=== PATIENT | female | born 1945 | race Caucasian/White ===

== ENCOUNTER 2018-06-24 11:43 | Inpatient (IN) | payer MEDICARE, BC ==
--- NOTE | 2018-06-24 12:10 | Emergency Department Record ---
History of Present Illness - General Chief Complaint: Dizziness Stated Complaint: DIZZINESS Time Seen by Provider: 06/24/18 12:01 Source: Patient Mode of Arrival: Ambulatory Limitations: No limitations - History of Present Illness Initial Comments: 73 yo female presents with several days of weakness, lightheadedness, nausea, chronic diarrhea. No fevers. She reports she has not seen a family doctor in many years. She is a diabetic. She reports it has been 1-2 years since she had insulin. She states she controls her diabetes with her diet. She does not recall the last time she checked her blood sugar. She denies headache, vision changes, shortness of breath, cough, abdominal pain, rash, swelling, blood in stools. She notices the dizziness when she stands up suddenly. She is not dizzy laying down. She has had a lot of sinus drainage recently. Her ears feel plugged as well. No sore throat or cough. MD Complaint: Dizziness, Lightheadedness -: Days(s) Timing: Gradual onset Description: Lightheadedness, "Room spinning" History of Same: Yes History of Trauma: No Severity: Moderate Improves With: Remaining still Worsens With: Movement, Other (standing up) Associated Symptoms: Other (nasal congestion) - Syd Coma Scale Eye Response: (4) Open spontaneously Motor Response: (6) Obeys commands Verbal Response: (5) Oriented Syd Total: 15 - Related Data Home Medications Medication Instructions Recorded Confirmed Last Taken No Home Med [NO HOME MEDS] 06/24/18 06/24/18 Unknown Allergies Allergy/AdvReac Type Severity Reaction Status Date / Time No Known Drug Allergies Allergy Verified 06/24/18 12:12 Review of Systems Constitutional: Denies: Chills, Fever, Malaise, Night sweats, Weakness Eyes: Denies: Eye discharge, Eye pain, Photophobia, Vision change ENT: Reports: Congestion, Ear pain. Denies: Throat pain Respiratory: Denies: Cough, Dyspnea Cardiovascular: Denies: Chest pain, Dyspnea on exertion, Edema, Palpitations, Syncope Endocrine: Denies: Fatigue, Polydipsia, Polyuria Gastrointestinal: Reports: Nausea. Denies: Abdominal pain, Constipation, Diarrhea, Hematemesis, Hematochezia, Vomiting Genitourinary: Denies: Dysuria, Frequency, Urgency Musculoskeletal: Denies: Arthralgia, Back pain, Myalgia, Neck pain Skin: Denies: Bruising, Change in color, Rash Neurological: Reports: As per HPI, Vertigo. Denies: Abnormal gait, Confusion, Headache, Numbness, Paresthesias, Seizure, Tingling, Tremors, Weakness Psychiatric: Denies: Anxiety Hematological/Lymphatic: Denies: Blood Clots, Easy bleeding, Easy bruising, Swollen glands Physical Exam - General General Appearance: Alert, Oriented x3, Cooperative, No acute distress, Other ( Clear speech, well appearing) Limitations: No limitations - Head Head exam: Atraumatic, Normocephalic, Normal inspection - Eye Eye exam: Normal appearance, PERRL, EOMI. negative: Conjunctival injection, Periorbital swelling, Scleral icterus - ENT ENT exam: Normal exam, Mucous membranes moist, Normal orophraynx, TM's normal bilaterally Ear exam: Normal external inspection Nasal Exam: Discharge. negative: Normal inspection, Sinus tenderness Mouth exam: Normal external inspection, Tongue normal. negative: Drooling, Muffled voice, Tongue elevation Teeth exam: Other (No teeth) Throat exam: Normal inspection - Neck Neck exam: Normal inspection, Full ROM. negative: Lymphadenopathy, Meningismus , Tenderness - Respiratory Respiratory exam: Normal lung sounds bilaterally. negative: Accessory muscle use, Decreased breath sounds, Respiratory distress, Rhonchi, Stridor, Wheezes - Cardiovascular Cardiovascular Exam: Regular rate, Normal rhythm, Normal heart sounds Peripheral Pulses: 2+: Radial (R), Radial (L) - GI/Abdominal GI/Abdominal exam: Soft. negative: Tenderness - Rectal Rectal exam: Deferred - exam: Deferred - Extremities Extremities exam: Normal inspection, Full ROM, Normal capillary refill. negative: Calf tenderness, Pedal edema, Tenderness - Back Back exam: Reports: Full ROM. Denies: CVA tenderness (R), CVA tenderness (L) - Neurological Neurological exam: Alert, CN II-XII intact, Oriented X3. negative: Altered, Motor sensory deficit - Psychiatric Psychiatric exam: Normal affect, Normal mood. negative: Agitated, Anxious - Skin Skin exam: Dry, Intact, Normal color, Warm Course - Reevaluation(s) Reevaluation #1: EMR reviewed. No records on EMR. 06/24/18 12:09 06/24/18 12:49 EKG 1233 NSR Rate 84 Intervals [address] Non specific ST changes 06/24/18 13:27 CR is 1.1 Sodium is 131 06/24/18 13:53 K is 4.5 HCO3 is 20 AG is 22 Glucose is 598 LFT's normal 06/24/18 14:22 Acetone is positive 06/24/18 14:43 pH 7.30 [facility] admission for hyperglycemia/mild DKA 06/24/18 14:48 Medical Decision Making - Lab Data Result diagrams: 06/24/18 12:55 06/24/18 12:55 Disposition Disposition: Admit Clinical Impression: Hyperglycemia, Dehydration Disposition: Still a Patient at [facility] Decision to Admit: Admit from ER Decision to Admit Date: 06/24/18 Decision to Admit Time: 14:48 Condition: (2) Stable Forms: Patient Portal Access Time of Disposition: 14:48 Quality - Quality Measures Quality Measures: N/A - Blood Pressure Screening Does Patient Have Any of the Following: No Blood Pressure Classification: Pre-Hypertensive BP Reading Systolic Measurement: 176 Diastolic Measurement: 82 Screening for High Blood Pressure: < Pre-Hypertensive BP, F/U Documented > [ [id number]] Pre-Hypertensive Follow-up Interventions: Referral to alternative/primary care provider.
[2018-06-24] MEDS ORDERED: 0.9 % SODIUM CHLORIDE 1,000 ML BAG IV ONE (12:36)
[2018-06-24 13:11] LABS: HEMATOCRIT 45.1 % (35.0-47.0); HEMOGLOBIN 15.6 gm/dl (11.6-16.0); MEAN CELL VOLUME 84.6 fl (81-97); MEAN CORPUSCULAR HEMOGLOBIN 29.3 pg (27-33); MEAN CORPUSCULAR HGB CONC 34.6 g/dl (32-36); MEAN PLATELET VOLUME 10.6 fl (7.4-10.4); PLATELET COUNT 200 K/uL (130-400); RED BLOOD COUNT 5.33 M/uL (3.80-5.40); RED CELL DISTRIBUTION WIDTH 12.4 % (11.5-14.5); WHITE BLOOD COUNT W/O DIFF 7.6 K/uL (4.2-12.2)
[2018-06-24 13:20] LABS: PLATELET ESTIMATE NORMAL (NORMAL)
[2018-06-24] MEDS ORDERED: MECLIZINE 25 MG TABLET PO ONE (13:23)
[2018-06-24] MEDS ORDERED: ONDANSETRON 4 MG ODT TABLET SL ONE (13:23)
[2018-06-24 13:24] LABS: BILIRUBIN,TOTAL 0.6 mg/dL (0.2-1.0); CREATININE 1.1 mg/dL (0.5-0.9)
[2018-06-24 13:25] LABS: TOTAL PROTEIN 7.4 g/dL (6.6-8.7)
[2018-06-24 13:29] LABS: ALB/GLOB RATIO 1.1 (1.1-1.8); ALBUMIN 3.9 g/dL (4.0-5.0)
[2018-06-24 13:40] LABS: THYROID STIMULATING HORMONE 0.84 uIU/mL (0.270-4.20)
[2018-06-24] MEDS ORDERED: HUMULIN R 100 UNIT/ML VIAL SQ ONE (13:54)
[2018-06-24 13:55] LABS: URINE APPEARANCE CLEAR; URINE BILIRUBIN NEGATIVE (NEGATIVE); URINE BLOOD NEGATIVE (NEGATIVE); URINE COLOR YELLOW; URINE KETONE 40 mg/dL (NEGATIVE); URINE LEUKOCYTE ESTERASE NEGATIVE (NEGATIVE); URINE NITRITE NEGATIVE (NEGATIVE); URINE PROTEIN NEGATIVE (NEGATIVE); URINE UROBILINOGEN 0.2 E.U./dL (0.20 - 1.00)
[2018-06-24 13:58] LABS: URINE GLUCOSE (UA) >=1000 mg/dL (NEGATIVE)
[2018-06-24] MEDS ORDERED: ONDANSETRON HCL IV 4 MG/2 ML VIAL IVP PRN (14:54)
[2018-06-24] MEDS ORDERED: ACETAMINOPHEN 325 MG TAB PO PRN (16:07)
[2018-06-24] MEDS ORDERED: 0.9 % SODIUM CHLORIDE 1000ML 1,000 ML IV PRN (16:07)
[2018-06-24 18:50] LABS: BLOOD UREA NITROGEN 21 mg/dL (8-23); CREATININE 0.8 mg/dL (0.5-0.9); EST GLOMERULAR FILTRATION RATE > 60 mL/min; GLUCOSE,RANDOM 372 mg/dL (74-109)
[2018-06-24] MEDS: HUMULIN R 100 UNIT/ML VIAL SQ PRN (18:50)
[2018-06-24 22:18] LABS: BLOOD UREA NITROGEN 21 mg/dL (8-23); CREATININE 0.8 mg/dL (0.5-0.9); EST GLOMERULAR FILTRATION RATE > 60 mL/min; GLUCOSE,RANDOM 305 mg/dL (74-109)
--- NOTE | 2018-06-25 07:42 | CT SCAN REPORT ---
EXAM: CT OF THE HEAD WITHOUT CONTRAST HISTORY: DIZZINESS. HEADACHE. TECHNIQUE: Routine noncontrast CT examination of the head was performed. Comparison: None. FINDINGS: The ventricles and subarachnoid spaces are normal in size for age. No suspicious area of abnormally increased or decreased attenuation is noted throughout the brain substance. No abnormal extraaxial fluid collection is seen. There is atherosclerotic calcification of the distal vertebral arteries and distal internal carotid arteries, mild to moderate in degree. No asymmetric density of the middle cerebral arteries. The visualized paranasal sinuses and mastoid air cells are grossly clear. The orbits as visualized are unremarkable with the exception of bilateral cataract surgery changes. The patient is edentulous. IMPRESSION: 1. NO CT EVIDENCE OF AN ACUTE INTRACRANIAL ABNORMALITY. 2. MILD TO MODERATE ATHEROSCLEROTIC CALCIFICATION OF THE DISTAL VERTEBRAL ARTERIES AND DISTAL INTERNAL CAROTID ARTERIES. 3. BILATERAL CATARACT SURGERY CHANGES. JOB NUMBER: [id number] MTDD
[2018-06-25] MEDS: HUMULIN R 100 UNIT/ML VIAL SQ PRN (08:43)
[2018-06-25 08:56] LABS: BLOOD UREA NITROGEN 21 mg/dL (8-23); CREATININE 0.8 mg/dL (0.5-0.9); EST GLOMERULAR FILTRATION RATE > 60 mL/min; GLUCOSE,RANDOM 344 mg/dL (74-109)
[2018-06-25] MEDS ORDERED: FAMOTIDINE IV 20 MG/2 ML VIAL IVP ONE (09:52)
[2018-06-25] MEDS ORDERED: ONDANSETRON HCL IV 4 MG/2 ML VIAL IVP ONE (09:58)
[2018-06-25] MEDS ORDERED: ONDANSETRON 4 MG ODT TABLET SL PRN (10:00)
[2018-06-25] MEDS ORDERED: SOD CHLOR 0.9% WITH KCL 40MEQ 40 MEQ/1,000 ML IV.SOLN IV ONE (10:01)
[2018-06-25] MEDS ORDERED: HYOSCYAMINE SULFATE ODT 0.125 MG TAB.SUBL SL ONE (10:12)
[2018-06-25 10:21] LABS: BASO % 0.3 % (0-6); GRAN % 77.6 % (47-80); LYMPH % 13.4 % (16-45); MEAN CELL VOLUME 86.8 fl (81-97); MEAN CORPUSCULAR HEMOGLOBIN 28.9 pg (27-33); MEAN CORPUSCULAR HGB CONC 33.3 g/dl (32-36); MEAN PLATELET VOLUME 10.7 fl (7.4-10.4); MONO % 8.7 % (0-9); PLATELET COUNT 195 K/uL (130-400); RED BLOOD COUNT 4.84 M/uL (3.80-5.40); RED CELL DISTRIBUTION WIDTH 12.5 % (11.5-14.5); WHITE BLOOD COUNT W/O DIFF 6.8 K/uL (4.2-12.2)
[2018-06-25] MEDS: AMLODIPINE BESYLATE 5MG TAB PO SCH (10:50)
[2018-06-25] MEDS: LEVEMIR FLEXTOUCH 100 UNIT/ML INSULIN PEN SQ SCH ×2 (10:53→22:01)
--- NOTE | 2018-06-25 12:02 | History & Physical ---
History of Present Illness - Date of Service Date of Service for History & Physical: 06/25/18 - History of Present Illness Admitting Diagnosis: DKA, mild History of Present Illness: PMHx reported by pt: HTN, COPD, HLD, reflux, DM diagnosed at 18 (insulin dependent) Pt presented to the ED with dizziness. She states that for the 2 days prior to going to the ED she was experiencing N/V/D along with nasal congestion, nasal discharge, cough, ear pain. She has not had a PCP for 3 years since moving to ER from [place], [place]. She states that she couldn't get a refill of her insulin so she has been controlling it with diet. She also has been without her other chronic meds for the last 3 years. She states that she was diagnosed with DM at 18 yo and was started on insulin. Taking 24 units in the AM and novolog throughout the day based on carb counting. She complains of some nausea still and having to force herself to eat but otherwise vomiting and diarrhea have resolved. She does complain of dysuria and frequency today. Pt was diagnosed and admitted for treatment of DKA. Travel Screening - Travel/Exposure Within Last 30 Days Have you traveled within the last 30 days?: Yes Location Detail:: [facility]. - Travel/Exposure Within Last Year Have you traveled outside the [place] in the last year?: No - Additonal Travel Details Have you been exposed to anyone with a communicable illness?: No - Travel Symptoms Symptom Screening: Weakness, Fatigue, Diarrhea, Vomiting, Stomach Pain Review of Systems Constitutional: Denies: Chills, Fever, Malaise, Night sweats, Weakness Eyes: Denies: Eye discharge, Eye pain, Photophobia, Vision change ENT: Reports: Congestion, Ear pain. Denies: Throat pain Respiratory: Reports: Cough. Denies: Dyspnea Cardiovascular: Denies: Chest pain, Dyspnea on exertion, Edema, Palpitations, Syncope Endocrine: Reports: Polyuria. Denies: Fatigue Gastrointestinal: Reports: Abdominal pain, Nausea, Vomiting (without blood). Denies: Constipation, Diarrhea, Hematemesis, Hematochezia Genitourinary: Reports: Dysuria, Frequency. Denies: Urgency Musculoskeletal: Denies: Arthralgia, Back pain, Myalgia, Neck pain Skin: Denies: Bruising, Change in color, Rash Neurological: Denies: Abnormal gait, Confusion, Headache, Numbness, Paresthesias , Seizure, Tingling, Tremors, Vertigo, Weakness Psychiatric: Denies: Anxiety Hematological/Lymphatic: Denies: Blood Clots, Easy bleeding, Easy bruising, Swollen glands Past Medical History - SOCIAL HISTORY Smoking Status: Never smoker - RESPIRATORY Hx Respiratory Disorders: Yes Hx COPD: Yes ( was long time smoker and pt exposed to second hand smoke) Comment:: secondary smoke, unknown diagnosis - CARDIOVASCULAR Hx Cardio Disorders: Yes Hx Hypertension: Yes - NEURO Hx Neuro Disorders: Yes Hx Dizziness: Yes - GI Hx GI Disorders: Yes Hx Reflux: Yes Hx Nausea/Vomiting: Yes - Hx Genitourinary Disorders: Yes Hx Bladder Problem: Yes (hx of surgery) - ENDOCRINE Hx Endocrine Disorders: Yes Hx Diabetes: Yes (diet controlled, hx of insulin use) - MUSCULOSKELETAL Hx Musculoskeletal Disorders: Yes Hx Arthritis: Yes (RA) - PSYCH Hx Psych Problems: No - HEMATOLOGY/ONCOLOGY Hx Hematology/Oncology Disorders: No Family Medical History Any Significant Family History?: Yes Hx Cancer: Father, Mother Hx Diabetes: Father, Mother Hx Heart Disease: Mother, Brother/Sister Hx HTN: Mother, Brother/Sister Hx Stroke: Father H&P Meds/Allergies - Allergies Allergies: Allergies Allergy/AdvReac Type Severity Reaction Status Date / Time No Known Drug Allergies Allergy Verified 06/24/18 12:12 - Home Medications Home Medications Medication Instructions Recorded Confirmed Last Taken No Home Med [NO HOME MEDS] 06/24/18 06/24/18 Unknown - Active Medications Active Medications: Current Medications Acetaminophen (Tylenol 325mg) 650 mg PO Q6H PRN PRN Reason: PAIN - MILD(1-4)/FEVER Last Admin: 06/24/18 20:23 Dose: 650 mg Amlodipine Besylate (Norvasc) 5 mg PO DAILY [facility] Last Admin: 06/25/18 10:50 Dose: 5 mg Potassium Chloride/Sodium Chloride (Potassium Chl 40meq/) 40 meq in 1,000 mls @ 100 mls/hr IV NOW ONE Stop: 06/25/18 20:00 Last Admin: 06/25/18 10:53 Dose: 100 mls/hr Insulin Aspart (Novolog Flexpen) 1 unit SQ QIDACHS PRN PRN Reason: HYPERGLYCEMIA Insulin Detemir (Levemir Flextouch) 10 unit SQ BID [facility] Last Admin: 06/25/18 10:53 Dose: 10 unit Ondansetron HCl (Zofran Odt) 4 mg SL Q8H PRN PRN Reason: NAUSEA/VOMITING Physical Exam - Vital Signs Vital Signs: Vital Signs - Last 24 Hrs Temp Pulse Pulse Resp BP BP BP 06/25/18 08:31 16 06/25/18 08:00 98.9 F 76 18 155/50 06/25/18 00:00 98.6 F 06/24/18 21:00 100.7 F H 06/24/18 20:29 16 06/24/18 20:00 102.0 F H 90 20 131/71 06/24/18 16:09 84 16 06/24/18 15:45 99.4 F 82 18 172/68 06/24/18 15:37 98.2 F 84 18 185/67 06/24/18 14:41 80 20 177/65 06/24/18 12:00 98.1 F 90 20 176/82 Pulse Ox 06/25/18 08:31 06/25/18 08:00 95 06/25/18 00:00 06/24/18 21:00 06/24/18 20:29 06/24/18 20:00 100 06/24/18 16:09 06/24/18 15:45 99 06/24/18 15:37 96 06/24/18 14:41 95 06/24/18 12:00 98 - General General Appearance: Alert, Oriented x3, Cooperative, No acute distress, Other ( Clear speech, well appearing) Limitations: No limitations - Head Head exam: Atraumatic, Normocephalic, Normal inspection - Eye Eye exam: Normal appearance, EOMI. negative: Conjunctival injection, Periorbital swelling, Scleral icterus - ENT ENT exam: Normal exam, Mucous membranes dry, Normal orophraynx Ear exam: Normal external inspection Nasal Exam: negative: Normal inspection, Discharge, Sinus tenderness Mouth exam: Normal external inspection, Tongue normal. negative: Drooling, Muffled voice, Tongue elevation Teeth exam: Other (No teeth) Throat exam: Normal inspection - Neck Neck exam: Normal inspection, Full ROM. negative: Lymphadenopathy, Tenderness - Respiratory Respiratory exam: Normal lung sounds bilaterally. negative: Accessory muscle use, Decreased breath sounds, Respiratory distress, Rhonchi, Stridor, Wheezes - Cardiovascular Cardiovascular Exam: Regular rate, Normal rhythm, Normal heart sounds - GI/Abdominal GI/Abdominal exam: Soft, Normal bowel sounds. negative: Tenderness - Rectal Rectal exam: Deferred - exam: Deferred - Extremities Extremities exam: Normal inspection, Full ROM, Normal capillary refill. negative: Calf tenderness, Pedal edema, Tenderness - Back Back exam: Reports: Full ROM - Neurological Neurological exam: Alert, Normal gait, Oriented X3. negative: Altered, Motor sensory deficit - Psychiatric Psychiatric exam: Normal affect, Normal mood. negative: Agitated, Anxious - Skin Skin exam: Dry, Intact, Normal color, Warm Results - Labs Result Diagrams: 06/25/18 06:20 06/25/18 06:20 Labs Last 24 Hours: Laboratory Results - last 24 hr 06/24/18 06/24/18 06/24/18 12:55 12:55 12:55 WBC 7.6 RBC 5.33 Hgb 15.6 Hct 45.1 MCV 84.6 MCH 29.3 MCHC 34.6 RDW 12.4 Plt Count 200 MPV 10.6 H Gran % Neutrophils % 79.0 Lymphocytes % Monocytes % Eosinophils % Not Reportable Basophils % Not Reportable Lymphocytes 15.0 L Monocytes 6.0 Platelet Estimate Normal VBG pH Sodium 131 L Potassium 4.5 Chloride 89 L Carbon Dioxide 20.0 L Anion Gap 22.0 H BUN 27 H Creatinine 1.1 H Estimated GFR 52 POC Glucose Random Glucose 598 H* Hemoglobin A1c Calcium 9.0 Total Bilirubin 0.60 AST 12 ALT 9 Alkaline Phosphatase 89 Total Protein 7.4 Albumin 3.9 L Globulin 3.5 Albumin/Globulin Ratio 1.1 TSH 0.84 Urine Color Urine Appearance Urine pH Ur Specific [place] Urine Protein Urine Glucose (UA) Urine Ketones Urine Blood Urine Nitrite Urine Bilirubin Urine Urobilinogen Ur Leukocyte Esterase Acetone, Qual Positive 06/24/18 06/24/18 06/24/18 13:40 14:15 17:00 WBC RBC Hgb Hct MCV MCH MCHC RDW Plt Count MPV Gran % Neutrophils % Lymphocytes % Monocytes % Eosinophils % Basophils % Lymphocytes Monocytes Platelet Estimate VBG pH 7.30 L Sodium Potassium Chloride Carbon Dioxide Anion Gap BUN Creatinine Estimated GFR POC Glucose Cancelled Random Glucose Hemoglobin A1c Calcium Total Bilirubin AST ALT Alkaline Phosphatase Total Protein Albumin Globulin Albumin/Globulin Ratio TSH Urine Color Yellow Urine Appearance Clear Urine pH 5.5 Ur Specific [place] 1.010 Urine Protein Negative Urine Glucose (UA) >=1000 mg/dl H Urine Ketones 40 mg/dl H Urine Blood Negative Urine Nitrite Negative Urine Bilirubin Negative Urine Urobilinogen 0.2 Ur Leukocyte Esterase Negative Acetone, Qual Cancelled 06/24/18 06/24/18 06/24/18 17:30 17:57 21:55 WBC RBC Hgb Hct MCV MCH MCHC RDW Plt Count MPV Gran % Neutrophils % Lymphocytes % Monocytes % Eosinophils % Basophils % Lymphocytes Monocytes Platelet Estimate VBG pH Sodium 134 L 134 L Potassium 4.2 3.7 Chloride 93 L 97 L Carbon Dioxide 21.0 L 25.0 Anion Gap 20.0 H 12.0 BUN 21 21 Creatinine 0.8 0.8 Estimated GFR > 60 > 60 POC Glucose 321 H Random Glucose 372 H 305 H Hemoglobin A1c Calcium 8.7 L 8.5 L Total Bilirubin AST ALT Alkaline Phosphatase Total Protein Albumin Globulin Albumin/Globulin Ratio TSH Urine Color Urine Appearance Urine pH Ur Specific [place] Urine Protein Urine Glucose (UA) Urine Ketones Urine Blood Urine Nitrite Urine Bilirubin Urine Urobilinogen Ur Leukocyte Esterase Acetone, Qual 06/24/18 06/25/18 06/25/18 22:00 06:20 06:20 WBC RBC Hgb Hct MCV MCH MCHC RDW Plt Count MPV Gran % Neutrophils % Lymphocytes % Monocytes % Eosinophils % Basophils % Lymphocytes Monocytes Platelet Estimate VBG pH Sodium 135 L Potassium 4.1 Chloride 97 L Carbon Dioxide 22.0 Anion Gap 16.0 BUN 21 Creatinine 0.8 Estimated GFR > 60 POC Glucose Cancelled Random Glucose 344 H Hemoglobin A1c 15.20 H Calcium 8.8 Total Bilirubin AST ALT Alkaline Phosphatase Total Protein Albumin Globulin Albumin/Globulin Ratio TSH Urine Color Urine Appearance Urine pH Ur Specific [place] Urine Protein Urine Glucose (UA) Urine Ketones Urine Blood Urine Nitrite Urine Bilirubin Urine Urobilinogen Ur Leukocyte Esterase Acetone, Qual 06/25/18 06/25/18 06/25/18 06:20 08:10 10:00 WBC 6.8 RBC 4.84 Hgb 14.0 Hct 42.0 MCV 86.8 MCH 28.9 MCHC 33.3 RDW 12.5 Plt Count 195 MPV 10.7 H Gran % 77.6 Neutrophils % Not Reportable Lymphocytes % 13.4 L Monocytes % 8.7 Eosinophils % 0.0 Basophils % 0.3 Lymphocytes Not Reportable Monocytes Not Reportable Platelet Estimate VBG pH Sodium Cancelled Potassium Cancelled Chloride Cancelled Carbon Dioxide Cancelled Anion Gap Cancelled BUN Cancelled Creatinine Cancelled Estimated GFR Cancelled POC Glucose Cancelled Random Glucose Cancelled Hemoglobin A1c Calcium Cancelled Total Bilirubin AST ALT Alkaline Phosphatase Total Protein Albumin Globulin Albumin/Globulin Ratio TSH Urine Color Urine Appearance Urine pH Ur Specific [place] Urine Protein Urine Glucose (UA) Urine Ketones Urine Blood Urine Nitrite Urine Bilirubin Urine Urobilinogen Ur Leukocyte Esterase Acetone, Qual 06/25/18 16:00 WBC RBC Hgb Hct MCV MCH MCHC RDW Plt Count MPV Gran % Neutrophils % Lymphocytes % Monocytes % Eosinophils % Basophils % Lymphocytes Monocytes Platelet Estimate VBG pH Sodium Cancelled Potassium Cancelled Chloride Cancelled Carbon Dioxide Cancelled Anion Gap Cancelled BUN Cancelled Creatinine Cancelled Estimated GFR Cancelled POC Glucose Random Glucose Cancelled Hemoglobin A1c Calcium Cancelled Total Bilirubin AST ALT Alkaline Phosphatase Total Protein Albumin Globulin Albumin/Globulin Ratio TSH Urine Color Urine Appearance Urine pH Ur Specific [place] Urine Protein Urine Glucose (UA) Urine Ketones Urine Blood Urine Nitrite Urine Bilirubin Urine Urobilinogen Ur Leukocyte Esterase Acetone, Qual VTE H&P Assessment - Risk for VTE Risk for VTE: Yes Risk Level: Low Risk Assessment Date: 06/25/18 Risk Assessment Time: 12:00 VTE Orders Placed or Will Be Placed: Yes Plan - Inpatient Certification Inpatient Certification: Admit to inpatient care: Based on my medical assessment, after consideration of patient's risk factors (age, co-morbidities and patient presenting symptoms and acuity), I expect that this patient will remain in the hospital greater than or equal to two midnights and that the services needed warrant inpatient care because: Patient Risk Factors: [] Estimated length of stay: [] The patient may reasonably be expected to be discharged or transferred to a hospital within 96 hours after admission to [facility]. Services needed: [] Post hospital care (if known): [] I certify that my determination is in accordance with my understanding of Medicare requirements for reasonable and necessary inpatient services. - Detailed Diagnosis and Plan (1) DKA (diabetic ketoacidoses) Plan: - Uncontrolled diabetic 2/2 to no medication and also worsened by infection. - Pt febrile overnight. - CBC and BMP ordered. - Anion gap closed with fluids overnight. - Likely viral infection but will do CXR and urine to rule out bacterial infection. - Continue NS w/ KCL at 1.5 maintenance (100ml/hr) until pt has good oral intake. - Zofran, pepcid, and hyoscyamine now. - Zofran PRN nausea Q 8 hours afterwards. - Levemir 10units BID - Novolog per SS - ADA diet Current Visit: Yes Status: Acute Qualifiers: Diabetes mellitus type: type 1 Diabetes mellitus complication detail: without coma Qualified Code(s): E10.10 - Type 1 diabetes mellitus with ketoacidosis without coma Base Code: E13.10 - OTH DIABETES MELLITUS WITH KETOACIDOSIS WITHOUT COMA Priority: High (2) HTN (hypertension) Plan: - Start norvasc 5mg daily. Current Visit: Yes Status: Acute Base Code: I10 - ESSENTIAL (PRIMARY) HYPERTENSION (3) COPD (chronic obstructive pulmonary disease) Plan: - Breo Daily. Current Visit: Yes Status: Acute Base Code: J44.9 - CHRONIC OBSTRUCTIVE PULMONARY DISEASE, UNSPECIFIED - Disposition Home when tolerating PO intake and sugars controlled.
[2018-06-25] MEDS: NOVOLOG FLEXPEN (INSULIN ASPART) 100 UNITS/ML SQ PRN ×3 (14:10→22:02)
[2018-06-26] MEDS ORDERED: BREO (FLUTICASONE/VILANTEROL) 100MCG/25MCG INHALER INH SCH ×2 (06:00→10:00)
[2018-06-26 06:42] LABS: BLOOD UREA NITROGEN 20 mg/dL (8-23); CREATININE 0.6 mg/dL (0.5-0.9); EST GLOMERULAR FILTRATION RATE > 60 mL/min; GLUCOSE,RANDOM 218 mg/dL (74-109)
--- NOTE | 2018-06-26 09:29 | Discharge Summary ---
Providers Discharge Summary Date: 06/26/18 Date of admission: 06/24/18 15:46 Expected Date of Discharge: 06/26/18 Attending physician: MAITE MEEHAN Physical Exam - Vital Signs Vital Signs: Vital Signs - Last 24 Hrs Temp Pulse Resp BP Pulse Ox 06/26/18 08:59 99.0 F 76 16 146/65 100 06/26/18 06:42 98.4 F 65 18 149/64 92 L 06/25/18 21:00 84 18 06/25/18 20:00 97.5 F L 84 18 162/68 95 06/25/18 16:00 99.6 F 79 16 147/57 94 L 06/25/18 12:00 99.0 F 78 18 111/61 96 - General General Appearance: Alert, Oriented x3, Cooperative, No acute distress, Other ( Clear speech, well appearing) Limitations: No limitations - Head Head exam: Atraumatic, Normocephalic, Normal inspection Head exam detail: negative: Abrasion, Contusion, CSF otorrhea, CSF rhinorrhea, Laceration, [place] eyes - Eye Eye exam: Normal appearance, EOMI. negative: Conjunctival injection, Periorbital swelling, Scleral icterus - ENT ENT exam: Normal exam, Mucous membranes moist, Normal external ear exam Ear exam: Normal external inspection Nasal Exam: negative: Normal inspection, Discharge, Sinus tenderness Mouth exam: Normal external inspection, Tongue normal. negative: Drooling, Muffled voice, Tongue elevation Teeth exam: Other (No teeth) Throat exam: Normal inspection - Neck Neck exam: Normal inspection, Full ROM. negative: Lymphadenopathy, Tenderness - Respiratory Respiratory exam: Normal lung sounds bilaterally. negative: Accessory muscle use, Decreased breath sounds, Respiratory distress, Rhonchi, Stridor, Wheezes - Cardiovascular Cardiovascular Exam: Regular rate, Normal rhythm, Normal heart sounds - GI/Abdominal GI/Abdominal exam: Soft, Normal bowel sounds. negative: Tenderness - Rectal Rectal exam: Deferred - exam: Deferred - Extremities Extremities exam: Normal inspection, Full ROM. negative: Calf tenderness, Pedal edema, Tenderness - Back Back exam: Reports: Full ROM - Neurological Neurological exam: Alert, Normal gait, Oriented X3. negative: Altered, Motor sensory deficit - Psychiatric Psychiatric exam: Normal affect, Normal mood. negative: Agitated, Anxious - Skin Skin exam: Dry, Intact, Normal color, Warm Hospitalization - Hospitalization Admission Diagnosis: DKA, mild - Problem List/Discharge Diagnosis (1) DKA (diabetic ketoacidoses) Plan: - Uncontrolled diabetic 2/2 to no medication and also worsened by viral infection. - Afebrile x 2 days. - No evidence of bacterial infection on CBC/ UA/ CXR. Likely viral sinusitis. - Anion gap closed. - Abd pain resolved. Nausea resolved. Good appetite. - This AM glucose level 180. - Required 16 units of novolog overnight will increase long acting to 15 units BID. - Will give sliding scale to use at home for novolog. - ADA diet - Add lipitor upon D/C 06/26/18 09:55 06/26/18 11:57 Current Visit: Yes Status: Acute Discharge Diagnosis: Diabetes mellitus type: type 1 Diabetes mellitus complication detail: without coma Qualified Code(s): E10.10 - Type 1 diabetes mellitus with ketoacidosis without coma Base Code: E13.10 - OTH DIABETES MELLITUS WITH KETOACIDOSIS WITHOUT COMA (2) HTN (hypertension) Plan: - Continue norvasc daily. Current Visit: Yes Status: Acute Discharge Diagnosis: Hypertension type: essential hypertension Qualified Code(s): I10 - Essential (primary) hypertension Base Code: I10 - ESSENTIAL (PRIMARY) HYPERTENSION (3) COPD (chronic obstructive pulmonary disease) Plan: - Will see which inhalers are covered for pt. Will give per coverage to use at home. - Should get PFT outpt to assess for true diagnosis. - long time smoker and she was exposed to fumes for several years. 06/26/18 11:58 Current Visit: Yes Status: Chronic Discharge Diagnosis: COPD type: unspecified COPD Qualified Code(s): J44.9 - Chronic obstructive pulmonary disease, unspecified Base Code: J44.9 - CHRONIC OBSTRUCTIVE PULMONARY DISEASE, UNSPECIFIED - Disposition Home when tolerating PO intake and sugars controlled. - Hospitalization Course Disposition: Home, Self-Care Hospital Course: PMHx reported by pt: HTN, COPD, HLD, reflux, DM diagnosed at 18 (insulin dependent) ED course: Pt presented to the ED with dizziness. She states that for the 2 days prior to going to the ED she was experiencing N/V/D along with nasal congestion, nasal discharge, cough, ear pain. She has not had a PCP for 3 years since moving to ER from [place], [place]. She states that she couldn't get a refill of her insulin so she has been controlling it with diet. She also has been without her other chronic meds for the last 3 years. She states that she was diagnosed with DM at 18 yo and was started on insulin. Taking 24 units in the AM, unsure about PM, and novolog throughout the day based on carb counting. She complains of some nausea still and having to force herself to eat but otherwise vomiting and diarrhea have resolved. She does complain of dysuria and frequency today. Pt was diagnosed and admitted for treatment of DKA. 06/25: Bacterial infection ruled out as cause of DKA but pt likely has viral sinusitis and evident uncontrolled diabetes. HbA1C 15. Anion gap closed, pt starting to eat. Sugars still elevated in 300-400 range today. Still nauseated and has abdominal pain. 06/26: Anion gap remains closed. Pt feeling much better. Glucose in AM 180. Tolerating PO intake well. Ready for discharge home. Procedures: Imaging and X-Rays 06/24/18 12:28 HEAD WO CONTRAST [CT] Stat 06/25/18 10:08 CHEST 2 VIEWS [RAD] Routine Cardiology Procedures 06/24/18 12:28 EKG NOW Abnormal Labs: Abnormal Lab Results 06/24/18 06/24/18 06/24/18 Range/Units 12:55 12:55 13:40 MPV 10.6 H (7.4-10.4) fl Lymphocytes % (16-45) % Lymphocytes 15.0 L (16-45) % VBG pH (7.33-7.43) Sodium 131 L (136-145) mmol/L Chloride 89 L (98-107) mmol/L Carbon Dioxide 20.0 L (22-29) mmol/L Anion Gap 22.0 H (7-16) BUN 27 H (8-23) mg/dL Creatinine 1.1 H (0.5-0.9) mg/dL POC Glucose (70-110) mg/dL Random Glucose 598 H* (74-109) mg/dL Hemoglobin A1c (4.0-6.00) % Calcium (8.8-10.2) mg/dL Albumin 3.9 L (4.0-5.0) g/dL Urine Glucose (UA) >=1000 mg/dl H (NEGATIVE) Urine Ketones 40 mg/dl H (NEGATIVE) 06/24/18 06/24/18 06/24/18 Range/Units 14:15 17:30 17:57 MPV (7.4-10.4) fl Lymphocytes % (16-45) % Lymphocytes (16-45) % VBG pH 7.30 L (7.33-7.43) Sodium 134 L (136-145) mmol/L Chloride 93 L (98-107) mmol/L Carbon Dioxide 21.0 L (22-29) mmol/L Anion Gap 20.0 H (7-16) BUN (8-23) mg/dL Creatinine (0.5-0.9) mg/dL POC Glucose 321 H (70-110) mg/dL Random Glucose 372 H (74-109) mg/dL Hemoglobin A1c (4.0-6.00) % Calcium 8.7 L (8.8-10.2) mg/dL Albumin (4.0-5.0) g/dL Urine Glucose (UA) (NEGATIVE) Urine Ketones (NEGATIVE) 06/24/18 06/25/18 06/25/18 Range/Units 21:55 06:20 06:20 MPV (7.4-10.4) fl Lymphocytes % (16-45) % Lymphocytes (16-45) % VBG pH (7.33-7.43) Sodium 134 L 135 L (136-145) mmol/L Chloride 97 L 97 L (98-107) mmol/L Carbon Dioxide (22-29) mmol/L Anion Gap (7-16) BUN (8-23) mg/dL Creatinine (0.5-0.9) mg/dL POC Glucose (70-110) mg/dL Random Glucose 305 H 344 H (74-109) mg/dL Hemoglobin A1c 15.20 H (4.0-6.00) % Calcium 8.5 L (8.8-10.2) mg/dL Albumin (4.0-5.0) g/dL Urine Glucose (UA) (NEGATIVE) Urine Ketones (NEGATIVE) 06/25/18 06/25/18 06/25/18 Range/Units 06:20 11:50 21:25 MPV 10.7 H (7.4-10.4) fl Lymphocytes % 13.4 L (16-45) % Lymphocytes (16-45) % VBG pH (7.33-7.43) Sodium (136-145) mmol/L Chloride (98-107) mmol/L Carbon Dioxide (22-29) mmol/L Anion Gap (7-16) BUN (8-23) mg/dL Creatinine (0.5-0.9) mg/dL POC Glucose 405 H 425 H (70-110) mg/dL Random Glucose (74-109) mg/dL Hemoglobin A1c (4.0-6.00) % Calcium (8.8-10.2) mg/dL Albumin (4.0-5.0) g/dL Urine Glucose (UA) (NEGATIVE) Urine Ketones (NEGATIVE) 06/26/18 Range/Units 06:13 MPV (7.4-10.4) fl Lymphocytes % (16-45) % Lymphocytes (16-45) % VBG pH (7.33-7.43) Sodium (136-145) mmol/L Chloride (98-107) mmol/L Carbon Dioxide (22-29) mmol/L Anion Gap (7-16) BUN (8-23) mg/dL Creatinine (0.5-0.9) mg/dL POC Glucose (70-110) mg/dL Random Glucose 218 H (74-109) mg/dL Hemoglobin A1c (4.0-6.00) % Calcium 8.5 L (8.8-10.2) mg/dL Albumin (4.0-5.0) g/dL Urine Glucose (UA) (NEGATIVE) Urine Ketones (NEGATIVE) Condition at Discharge: (1) Good VTE Discharge VTE Reason For No Overlap Therapy: Not Indicated Discharge Medications - Discharge Medications Prescriptions: Amlodipine Besylate [Norvasc] 5 mg PO DAILY #30 tab Atorvastatin Calcium [Lipitor] 40 mg PO DAILY #30 tablet Budesonide/Formoterol Fumarate [Symbicort 80-4.5 Mcg Inhaler] 2 puff IH BID #1 hfa.aer.ad Insulin Aspart [Novolog Flexpen] 1 unit SQ QIDACHS PRN #30 ml PRN Reason: Hyperglycemia Insulin Detemir [Levemir Flextouch] 15 unit SQ BID #30 mls Home Medications: Ambulatory Orders Amlodipine Besylate [Norvasc] 5 mg PO DAILY #30 tab 08/30/18 [Last Taken Unknown ] Atorvastatin Calcium [Lipitor] 40 mg PO DAILY #30 tablet 06/26/18 [Last Taken Unknown] Budesonide/Formoterol Fumarate [Symbicort 80-4.5 Mcg Inhaler] 2 puff IH BID #1 hfa.aer.ad 06/26/18 [Last Taken Unknown] Insulin Aspart [Novolog Flexpen] 1 unit SQ QIDACHS PRN #30 ml 06/26/18 [Last Taken Unknown] Insulin Detemir [Levemir Flextouch] 15 unit SQ BID #30 mls 06/26/18 [Last Taken Unknown] Discharge Plan - Discharge Instructions Activity at Discharge: Resume Usual Activities As Tolerated Diet at Discharge: Diabetic Diet Instructions: Amlodipine (By mouth), Atorvastatin (By mouth), Diabetic Ketoacidosis (DC), COPD (Chronic Obstructive Pulmonary Disease) (DC), Chronic Hypertension (DC) Additional Instructions: Novolog Sliding Scale: <150: 0 units 151-200 201-250 251-300 301-350 351-400 >400 Long acting insulin: 15 units in morning and before bed. Test glucose before each meal and at bedtime. F/u for appointment with family practice as planned. Quality Measures - Quality Measures Quality Measures: Advance Directives, Documentation of Current Medications in Medical Record, Elder Maltreatment Screen and Follow-Up Plan, Screening for High Blood Pressure and F/U Documented - Current Medications Quality Measure: Measure #130: Documentation of Current Medications Documentation of Current Medications: <Current Medications Documented/Reviewed> [G8427] - Blood Pressure Screening Quality Measure: Screening for High Blood Pressure and Follow-Up Documented Does Patient Have Any of the Following: Active Dx of HTN Blood Pressure Classification: Pre-Hypertensive BP Reading Systolic Measurement: 176 Diastolic Measurement: 82 Screening for High Blood Pressure: Patient Exclusion, Hx of HTN [G9744] - Advance Directives Quality Measure: Measure #47: Care Plan Advance Directives Established: No Advance Directives Information Provided To Patient: Yes Advance Directives on File: No Living Will: No Power of Oil Sales [employer] Service Rep: No Advance Care Planning: Not Discussed or Documented [[id number]] - Elder Abuse Suspicion Index Screening: Elder Abuse Suspicion Index Screening Rely on people for bathing, dressing, shopping, banking, etc: No Prevented from getting food, clothes, medication, etc: No Made to feel shamed or threatened by someone: No Forced to sign papers or use money against will: No Feel afraid, touched in ways not wanted or hurt physically: No Poor eye contact, withdrawn, malnourished, cuts or bruises: No Screening Result: Negative result EASI Reference Information: Anna JAIME, Venkatesh Grady, Danii Farias, Koffi Trammell.Development and validation of a tool to assist physicians identification of elder abuse: The Elder Abuse Suspicion Index (EASI ). Journal of Elder Abuse and Neglect, 2008; 20 (3): 276-300. - Elder Maltreatment Screen Quality Measures: Elder Maltreatment Screen and Follow-Up Plan Elder Maltreatment Screen: <Negative, No Follow-Up Plan Required> [G1662]
[2018-06-26] MEDS: LEVEMIR FLEXTOUCH 100 UNIT/ML INSULIN PEN SQ SCH (09:36)
[2018-06-26] MEDS: NOVOLOG FLEXPEN (INSULIN ASPART) 100 UNITS/ML SQ PRN ×2 (09:37→11:57)
[2018-06-26] MEDS: AMLODIPINE BESYLATE 5MG TAB PO SCH (09:48)
[2018-06-26] MEDS ORDERED: FAMOTIDINE 20MG TABLET PO SCH (10:00)
--- NOTE | 2018-06-28 20:03 | RADIOLOGY REPORT ---
EXAM: CHEST 2 VIEWS HISTORY: COUGH AND FEVER. TECHNIQUE: Upright PA and lateral views of the chest. COMPARISON: None. FINDINGS: The heart is not enlarged. The pulmonary vasculature is nondilated. There is elevation of the right hemidiaphragm. No confluent airspace opacity is seen, nor is there costophrenic angle blunting or pneumothorax. There are degenerative changes scattered throughout the visualized spine. IMPRESSION: NO EVIDENCE OF ACUTE CARDIOPULMONARY DISEASE. MILD ELEVATION OF THE RIGHT HEMIDIAPHRAGM. JOB NUMBER: [id number] [facility]
== END 2018-06-26 12:15 | disposition home or self-care (01) | DRG 639 ==
LOC: ER 11:43 → MEDSURG 15:46
PROVIDERS: ADMIT Internal Medicine; ATTEND Internal Medicine
DX: E10.10 Type 1 diabetes mellitus with ketoacidosis without coma (principal); E10.65 Type 1 diabetes mellitus with hyperglycemia; E86.0 Dehydration; R53.1 Weakness; R11.0 Nausea; R19.7 Diarrhea, unspecified; I10 Essential (primary) hypertension; J44.9 Chronic obstructive pulmonary disease, unspecified; M06.9 Rheumatoid arthritis, unspecified; E78.5 Hyperlipidemia, unspecified
CPT/HCPCS: 36416; 70450; 71046; 80048; 80053; 81003; 82009; 82800; 82948; 83036; 84443; 85027; 93005; 93010; 94640; 96360; 96361; 96374; 96375; 99223; 99238; 99285; J2405; J3490; J7030

== ENCOUNTER 2018-08-22 12:39 | Day surgery (SDC) | payer MEDICARE, BC ==
[2018-08-22] MEDS ORDERED: PROPOFOL 10 MG/ML VIAL IV ONE (12:40)
[2018-08-22] MEDS ORDERED: LIDOCAINE 2% MDV (20MG/ML) 20ML VIAL IV ONE (12:40)
--- NOTE | 2018-08-25 09:50 | Operative Note ---
DATE OF SURGERY: 08/22/2018 SURGEON: Francy Leslie MD OPERATION: COLONOSCOPY. INDICATIONS: This is a 74-year-old female with history of positive Cologuard who presented for colonoscopy. POSTOPERATIVE DIAGNOSES: 1. Left-sided colonic diverticulosis. 2. Otherwise normal colon. ANESTHESIA: Sedation is per Anesthesia. Pulse oximetry was monitored throughout the procedure to maintain O2 saturation of 90% or greater. Supplemental oxygen was administered via nasal cannula. Cardiac and vital signs were monitored throughout the duration of the procedure, and they were stable. The procedure of colonoscopy and risks and alternatives of the procedure, including the risk of bleeding and perforation, among others, were explained to the patient who voiced understanding and agreed to have the procedure done. Physical examination was performed, and the patient was found stable for sedation. PROCEDURE: The patient was placed in the left lateral position. Sedation was initiated. A digital rectal exam was performed and showed some mild external hemorrhoids with no palpable rectal masses. An Olympus PCF-180AL colonoscope was then inserted into the rectum under direct visualization. It was advanced to the cecum without difficulty. The ileocecal valve and appendiceal orifice were identified and photographed. The colonic mucosa was carefully examined upon introduction of the colonoscope. There were no other lesions noted except for diverticula in the sigmoid and descending colon. The colonoscope was then withdrawn while carefully examining the colonic mucosal surfaces. The ileocecal valve was intubated and terminal ileal mucosa was inspected for about 10 cm and it appeared normal. The cecum, the rest of the ascending colon, transverse colon, descending colon, and sigmoid colon mucosa revealed no other lesions. In the rectum, retroflexion was performed and grade 1 internal hemorrhoids were noted. The colonoscope was then withdrawn and the procedure was terminated. The patient tolerated the procedure well without any immediate complications. The patient remained with stable vital signs and was transferred to the recovery room. RECOMMENDATIONS: 1. The patient should be on a high-fiber diet. 2. The patient is to have a repeat colonoscopy as needed in 10 years. Thank you for allowing me to participate in the care of your patient. CC: MARICRUZ Ramos
== END 2018-08-22 14:14 | disposition home or self-care (01) ==
LOC: HOP 12:39
PROVIDERS: ATTEND Internal Medicine Gastroenterology
DX: R19.5 Other fecal abnormalities (principal); K57.30 Diverticulosis of large intestine without perforation or abscess without bleeding; I10 Essential (primary) hypertension; E78.00 Pure hypercholesterolemia, unspecified; E11.9 Type 2 diabetes mellitus without complications; J44.9 Chronic obstructive pulmonary disease, unspecified

== ENCOUNTER 2018-12-10 11:50 | Emergency (ER) | payer MEDICARE ==
--- NOTE | 2018-12-10 12:12 | Emergency Department Record ---
History of Present Illness - General Chief Complaint: Dizziness Stated Complaint: DIZZY/NAUSEA Time Seen by Provider: 12/10/18 11:54 Source: Patient, RN notes reviewed Mode of Arrival: Wheelchair - History of Present Illness Initial Comments: patient states dizziness for one month and her BP was 100 systolic this am and has been as low as 88. Her primary Joselynflavio Roberts saw this morning and the plan is to remove her water pill HCTZ from her combination pill of losartan/HCTZ 100/ 25. She said the new medication has been sent the [facility]. No headache or chest pain, no dyspnea, and she has DM, Hypertension. This am she ate scambled eggs, mushrooms, and a slice of dukes. Patient had an EKG done at the family practice office at [facility] andwhen I was talking to her she said her 3 years ago and her family moved her back to [place] from [place] and she is sad about that. Patient was able to stand up without dizziness and walked to the bathroom without being dizziness. MD Complaint: Dizziness, Lightheadedness -: Month(s) Timing: Unsure Description: Lightheadedness, Nausea, Off-balance History of Same: Yes History of Trauma: No Severity: Moderate Improves With: Rest Worsens With: Position - Syd Coma Scale Eye Response: (4) Open spontaneously Motor Response: (6) Obeys commands Verbal Response: (5) Oriented [place] Total: 15 - Related Data Previous Rx's Medication Instructions Recorded Insulin Aspart [Novolog Flexpen] 1 unit SQ QIDACHS PRN #30 ml 06/26/18 Ciprofloxacin HCl [Cipro] 500 mg PO Q12HR #20 tablet 12/10/18 Allergies Allergy/AdvReac Type Severity Reaction Status Date / Time No Known Drug Allergies Allergy Verified 12/10/18 12:01 Travel Screening - Travel/Exposure Within Last 30 Days Have you traveled within the last 30 days?: No - Travel/Exposure Within Last Year Have you traveled outside the [place] in the last year?: No - Additonal Travel Details Have you been exposed to anyone with a communicable illness?: No - Travel Symptoms Symptom Screening: None Review of Systems Reviewed: No additional complaints except as noted below Constitutional: Reports: As per HPI. Denies: Chills, Fever, Malaise, Night sweats, Weakness, Weight change Eyes: Reports: As per HPI. Denies: Eye discharge, Eye pain, Photophobia, Vision change ENT: Reports: As per HPI. Denies: Congestion, Dental pain, Ear pain, Epistaxis , Hearing loss, Throat pain Respiratory: Reports: As per HPI. Denies: Cough, Dyspnea, Hemoptysis, Stridor, Wheezes Cardiovascular: Reports: As per HPI. Denies: Arrhythmia, Chest pain, Dyspnea on exertion, Edema, Murmurs, Orthopnea, Palpitations, Paroxysmal nocturnal dyspnea, Rheumatic Fever, Syncope Endocrine: Reports: As per HPI. Denies: Fatigue, Heat or cold intolerance, Polydipsia, Polyuria Gastrointestinal: Reports: As per HPI, Nausea. Denies: Abdominal pain, Constipation, Diarrhea, Hematemesis, Hematochezia, Melena, Vomiting Genitourinary: Reports: As per HPI. Denies: Abnormal menses, Discharge, Dyspareunia, Dysuria, Frequency, Hematuria, Incontinence, Retention, Urgency Musculoskeletal: Reports: As per HPI. Denies: Arthralgia, Back pain, Gout, Joint swelling, Myalgia, Neck pain Skin: Reports: As per HPI. Denies: Bruising, Change in color, Change in hair/ nails, Lesions, Pruritus, Rash Neurological: Reports: As per HPI. Denies: Abnormal gait, Confusion, Headache, Numbness, Paresthesias, Seizure, Tingling, Tremors, Vertigo, Weakness Psychiatric: Reports: As per HPI. Denies: Anxiety, Auditory hallucinations, Depression, Homicidal thoughts, Suicidal thoughts, Visual hallucinations Hematological/Lymphatic: Reports: As per HPI. Denies: Anemia, Blood Clots, Easy bleeding, Easy bruising, Swollen glands Past Medical History - SOCIAL HISTORY Smoking Status: Never smoker Alcohol Use: None Drug Use: None - RESPIRATORY Hx Respiratory Disorders: Yes Hx COPD: Yes ( was long time smoker and pt exposed to second hand smoke) Hx Sleep Apnea: Yes Hx of CPAP: Yes Comment:: secondary smoke, unknown diagnosis - CARDIOVASCULAR Hx Cardio Disorders: Yes Hx Hypertension: Yes - NEURO Hx Neuro Disorders: Yes Hx Dizziness: Yes Hx Neuropathy: Yes (arms and legs) - GI Hx GI Disorders: Yes Hx Reflux: Yes Hx Nausea/Vomiting: Yes - Hx Genitourinary Disorders: Yes Hx Bladder Problem: Yes (hx of surgery) - ENDOCRINE Hx Endocrine Disorders: Yes Hx Diabetes: Yes (diet controlled, hx of insulin use) Hx Thyroid Disease: No - MUSCULOSKELETAL Hx Musculoskeletal Disorders: Yes Hx Arthritis: Yes (RA) - PSYCH Hx Psych Problems: No - HEMATOLOGY/ONCOLOGY Hx Hematology/Oncology Disorders: No Hx Anemia: Yes Hx Blood Transfusions: Yes Family Medical History Any Significant Family History?: Yes Hx Cancer: Father, Mother Hx Diabetes: Father, Mother Hx Heart Disease: Mother, Brother/Sister Hx HTN: Mother, Brother/Sister Hx Stroke: Father Physical Exam - General General Appearance: Alert, Oriented x3, Cooperative, No acute distress - Head Head exam: Normal inspection - Eye Eye exam: Normal appearance, PERRL Pupils: Normal accommodation - ENT ENT exam: Normal exam, Mucous membranes moist, Normal external ear exam, Normal orophraynx, TM's normal bilaterally Ear exam: Normal external inspection. negative: External canal tenderness Nasal Exam: Normal inspection. negative: Discharge, Sinus tenderness Mouth exam: Normal external inspection, Tongue normal Teeth exam: Normal inspection. negative: Dental caries Throat exam: Normal inspection. negative: Tonsillar erythema, Tonsillar exudate - Neck Neck exam: Normal inspection, Full ROM. negative: Tenderness - Respiratory Respiratory exam: Normal lung sounds bilaterally. negative: Respiratory distress - Cardiovascular Cardiovascular Exam: Regular rate, Normal rhythm, Normal heart sounds - GI/Abdominal GI/Abdominal exam: Soft, Normal bowel sounds. negative: Tenderness - Rectal Rectal exam: Deferred - exam: Deferred - Extremities Extremities exam: Normal inspection, Full ROM, Normal capillary refill. negative: Tenderness - Back Back exam: Reports: Normal inspection, Full ROM. Denies: Muscle spasm, Rash noted, Tenderness - Neurological Neurological exam: Alert, Normal gait, Oriented X3, Reflexes normal - Psychiatric Psychiatric exam: Normal affect, Normal mood - Skin Skin exam: Dry, Intact, Normal color, Warm Course Vital Signs 12/10/18 11:53 Temperature 97.7 F Pulse Rate 73 Respiratory 18 Rate Blood Pressure 145/57 Pulse Ox 100 - Reevaluation(s) Reevaluation #1: 12/10/18 12:27 reviewed EKG from [facility] and labs from 12/08/2018 12/10/18 12:30 EKG show normal sinus rhythm and t wave inverted AVL and I nonspecific changes no acute changes. 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 no arrhymias seen 12/10/18 12:32 Medical Decision Making - Data Complexity MDM Data: Labs Ordered and/or Reviewed (UA 4 plus bacteria,WBC greater than 50 no epithelial cells), EKG Ordered and/or Reviewed ([facility] and NSR , no acute changes) - Lab Data Result diagrams: 12/10/18 12:00 12/10/18 12:00 Disposition Clinical Impression: Dizziness UTI (urinary tract infection) Qualifiers: Urinary tract infection type: acute cystitis Hematuria presence: without hematuria Qualified Code(s): N30.00 - Acute cystitis without hematuria Diabetes Qualifiers: Diabetes mellitus type: type 2 Diabetes mellitus skilled nursing insulin use: with supervisor ovens use Diabetes mellitus complication status: without complication Qualified Code(s): E11.9 - Type 2 diabetes mellitus without complications; Z79.4 - long-term (current) use of insulin Disposition: Home, Self-Care Condition: (1) Good Instructions: Urinary Tract Infection in Women (ED), Dizziness (ED) Additional Instructions: follow up with family Dr in one week. Drink three glasses of water a day obtain the changed BP meds and start tomorrow Prescriptions: Ciprofloxacin HCl [Cipro] 500 mg PO Q12HR #20 tablet Forms: Patient Portal Access Time of Disposition: 12:54 Quality - Quality Measures Quality Measures: N/A - Blood Pressure Screening Does Patient Have Any of the Following: No Blood Pressure Classification: Hypertensive Reading Systolic Measurement: 145 Diastolic Measurement: 57 Screening for High Blood Pressure: < Pre-Hypertensive BP, F/U Documented > [ G8950] Pre-Hypertensive Follow-up Interventions: Referral to alternative/primary care provider.
[2018-12-10 12:32] LABS: URINE APPEARANCE SL CLOUDY; URINE BILIRUBIN NEGATIVE (NEGATIVE); URINE BLOOD NEGATIVE (NEGATIVE); URINE COLOR YELLOW; URINE GLUCOSE (UA) NEGATIVE (NEGATIVE); URINE KETONE TRACE (NEGATIVE); URINE LEUKOCYTE ESTERASE MODERATE (NEGATIVE); URINE NITRITE POSITIVE (NEGATIVE); URINE PROTEIN NEGATIVE (NEGATIVE); URINE UROBILINOGEN 0.2 E.U./dL (0.20 - 1.00)
[2018-12-10 12:42] LABS: URINE BACTERIA 4+; URINE EPITHELIAL CELLS 0 - 2 (FEW); URINE RBC NONE SEEN (NONE SEEN); URINE WBC >50 (0-2/hpf)
[2018-12-10] MEDS ORDERED: CIPROFLOXACIN HCL 500 MG TABLET PO ONE (12:51)
[2018-12-10 13:01] LABS: BASO % 0.6 % (0-6); EOS % 0.9 % (0-6); GRAN % 59.2 % (47-80); HEMATOCRIT 42.6 % (35.0-47.0); HEMOGLOBIN 14.3 gm/dl (11.6-16.0); LYMPH % 32.3 % (16-45); MEAN CELL VOLUME 86.1 fl (81-97); MEAN CORPUSCULAR HEMOGLOBIN 28.9 pg (27-33); MEAN CORPUSCULAR HGB CONC 33.6 g/dl (32-36); MEAN PLATELET VOLUME 10.4 fl (7.4-10.4); PLATELET COUNT 273 K/uL (130-400); RED BLOOD COUNT 4.95 M/uL (3.80-5.40); RED CELL DISTRIBUTION WIDTH 13.5 % (11.5-14.5); WHITE BLOOD COUNT W/O DIFF 6.7 K/uL (4.2-12.2)
[2018-12-10 13:14] LABS: BILIRUBIN,TOTAL 0.5 mg/dL (0.2-1.0); CREATININE 1.1 mg/dL (0.5-0.9); TOTAL PROTEIN 7.4 g/dL (6.6-8.7)
[2018-12-10 13:19] LABS: ALB/GLOB RATIO 1.2 (1.1-1.8); ALBUMIN 4.1 g/dL (4.0-5.0)
== END 2018-12-10 13:34 | disposition home or self-care (01) ==
LOC: ER 11:50
DX: R42 Dizziness and giddiness (principal); N30.00 Acute cystitis without hematuria; E11.9 Type 2 diabetes mellitus without complications; Z79.4 Long term (current) use of insulin; R11.0 Nausea; J44.9 Chronic obstructive pulmonary disease, unspecified; I10 Essential (primary) hypertension
CPT/HCPCS: 80053; 81001; 85025; 99284